=== PATIENT | female | born 1955 | race Caucasian/White ===

== ENCOUNTER → 2017-08-14 | Outpatient (CLI) | payer BC ==
[~2017-08-14] MED LIST: ACET-1966 PO; ASPI81TA94 PO; CHOL10005 PO; HYDR-2966 PO; LEVO112T9; LISI20TA29 PO; PRAV20TA65 PO; UBID50TA3 PO
== END ==
LOC: AUD 13:00
PROVIDERS: ATTEND Otolaryngology
DX: H93.19 Tinnitus, unspecified ear (principal)
CPT/HCPCS: 92557; 92570

== ENCOUNTER → 2017-08-23 | Outpatient (CLI) | payer BC | LOC: LAB 11:02 | PROVIDERS: ATTEND Otolaryngology | DX: J30.9 Allergic rhinitis, unspecified (principal) | CPT/HCPCS: 36415; 86003 ==

== ENCOUNTER → 2018-01-21 | Outpatient (CLI) | payer BC ==
--- NOTE | 2018-01-21 15:43 | RADIOLOGY IMAGING REPORT ---
[place] [facility] [place] NAME: Cari Mccabe : 1955 MR: [id number] V: [id number] EXAM DATE: ORDERING PHYSICIAN: BETTY OSCAR TECHNOLOGIST: Location: [facility] [place] Patient: Cari Mccabe : 1955 Visit/Account:[id number] Date of Sevice: 01/21/2018 KIDNEYS EXAMINATION: Renal ultrasound. History: Abnormal labs, history of bladder infections COMPARISON STUDIES: FINDINGS: Kidneys: Right kidney- 8.9 x 4.3 x 4.1 cm Left kidney- 9.9 x 4.7 x 6.9 cm Uniform and symmetric blood flow in each kidney by Doppler ultrasound. Hydronephrosis: none There is a slightly lobular contour to both kidneys There are two cysts in the medial aspect of the left kidney one measuring 1.9 cm in diameter one nichol uring 2.8 cm in diameter Bladder: Bladder prevoid volume 96 mL. The post void bladder residual is 1.9 mL. Bilateral ureteral jets are present. Incidentally noted are numerous gallstones Abdominal aorta and IVC: Aorta and IVC are patent by Doppler ultrasound. IMPRESSION: There are two left renal cysts one measuring 1.9 cm in diameter and one measuring 2.8 cm in diameter This a slightly lobular contour to both kidneys Post void bladder residual 1.9 mL Incidental note of numerous gallstones Report Dictated By: Karina You MD at 01/21/2018 3:23 PM Report E-Signed By: Karina You MD at 01/21/2018 3:40 PM WSN:[id number]
== END ==
LOC: US 01:55
PROVIDERS: ATTEND Family Medicine
DX: N28.1 Cyst of kidney, acquired (principal); K80.20 Calculus of gallbladder without cholecystitis without obstruction
CPT/HCPCS: 76705

== ENCOUNTER → 2018-07-07 | Outpatient (CLI) | payer BC ==
--- NOTE | 2018-07-08 14:10 | RADIOLOGY IMAGING REPORT ---
FACILITY: [facility] - [place] PATIENT NAME: RADHA CORNEJO : [id number] MR: [id number] V: [id number] EXAM DATE: ORDERING PHYSICIAN: BETTY OSCAR TECHNOLOGIST: Elva Sneed PROCEDURE:BILATERAL DIGITAL SCREENING MAMMOGRAM WITH CAD ASSISTED INTERPRETATION & 3D TOMOSYNTHESIS COMPARISON:Prior mammograms dated 06/20/17, 06/14/16, 05/25/15, 04/27/14, 04/21/14 INDICATIONS:screening FINDINGS: Scattered fibroglandular densities are seen throughout the breasts. Most of the parenchymal pattern has remained stable allowing for difference in mammographic technique & patient positioning. There is a small collection of loosely grouped round calcifications in the upper outer quadrant of the Left breast that have increased in number since the prior study. Spot magnification view of these calcifications in addition to a mediolateral view of the Left breast is recommended. DIAGNOSTIC CATEGORY 0--INCOMPLETE: NEED ADDITIONAL IMAGING EVALUATION. RECOMMENDATIONS: ADDITIONAL MAMMOGRAPHIC VIEWS REQUIRED: LEFT BREAST. IMPRESSION: BIRADS 0: Incomplete, need additional imaging evaluation. Additional views Left breast recommended as described. Dictated by: Karina You M.D. on 07/07/2018 at 17:12 Transcribed by: TONO on 07/08/2018 at 12:44 Approved by: Karina You M.D. on 07/08/2018 at 14:09 [facility]
== END ==
LOC: MAMO 03:24
PROVIDERS: ATTEND Family Medicine
DX: Z12.31 Encounter for screening mammogram for malignant neoplasm of breast (principal); R92.8 Other abnormal and inconclusive findings on diagnostic imaging of breast
CPT/HCPCS: 77063; 77067

== ENCOUNTER → 2018-07-24 | Outpatient (CLI) | payer BC ==
--- NOTE | 2018-07-25 08:48 | RADIOLOGY IMAGING REPORT ---
FACILITY: [facility] PATIENT NAME: RADHA CORNEJO : [id number] MR: [id number] V: [id number] EXAM DATE: [id number] ORDERING PHYSICIAN: BETTY OSCAR TECHNOLOGIST: Maggi Burris PROCEDURE:LEFT DIGITAL DIAGNOSTIC MAMMOGRAM WITH CAD ASSISTED INTERPRETATION COMPARISON:Prior mammograms 07/07/18, 06/20/17, 06/14/16, 05/25/15, 04/21/14, 03/27/13, 02/13/12. INDICATIONS:further evaluation FINDINGS: The patient returns for mediolateral view of the Left breast and Spot magnification views in the Left CC & MLO projections. The small grouping of round calcifications in the upper outer quadrant of the Left breast in the middle 1/3 are re-demonstrated. There is branching or pleomorphism however given the interval increase in number Stereotactic biopsy recommended for further evaluation. DIAGNOSTIC CATEGORY 4--SUSPICIOUS FOR MALIGNANCY. RECOMMENDATIONS: STEREOTACTIC BREAST BIOPSY: LEFT BREAST. IMPRESSION: BIRADS 4: Suspicious for malignancy. Stereotactic biopsy of the increasing round grouping of calcifications in the upper outer quadrant of the Left breast middle 1/3 recommended for further evaluation. Dictated by: Karina You M.D. on 07/24/2018 at 16:31 Transcribed by: JESUS on 07/25/2018 at 8:18 Approved by: Karina You M.D. on 07/25/2018 at 8:47 [facility]
== END ==
LOC: US 00:43
PROVIDERS: ATTEND Family Medicine
DX: R92.1 Mammographic calcification found on diagnostic imaging of breast (principal)
CPT/HCPCS: 77061; 77065

== ENCOUNTER 2018-07-25 16:04 | Outpatient (RCR) | payer BC ==
[2018-07-25 16:33] LABS: INR 0.95
--- NOTE | 2018-07-29 14:44 | RADIOLOGY IMAGING REPORT ---
FACILITY: [facility] [place] PATIENT NAME: RADHA CORNEJO : [id number] MR: [id number] V: [id number] EXAM DATE: [id number] ORDERING PHYSICIAN: BETTY OSCAR TECHNOLOGIST: Maggi Burris PROCEDURE: STEREOTACTIC LEFT BREAST BIOPSY COMPARISON: None. INDICATIONS: ABNORMAL MAMMO/INCREASING CALCIFICATIONS UPPER OUTER QUADRANT OF THE LEFT BREAST. FINDINGS: Informed consent was obtained. The patient was placed prone in the stereotactic biopsy table. The increasing calcifications in the upper outer quadrant of the Left breast were localized with digital stereo pair images. Local anesthesia was accomplished with 1% Lidocaine. Deep anesthesia accomplished with 1% Lidocaine with Epinephrine. Twelve 9 Gauge vacuum assisted core biopsies were obtained through the indeterminate calcifications in the upper outer quadrant of the Left breast. The specimen radiograph of the core samples demonstrated numerous calcifications within numerous core samples. A biopsy clip was placed in the biopsy site. The procedure was accomplished without apparent complication. CONCLUSION: Successful stereotactic biopsy of the indeterminate calcifications upper outer quadrant of the Left breast. Dictated by: Karina You M.D. on 07/28/2018 at 16:40 Transcribed by: TONO on 07/29/2018 at 9:59 Approved by: Karina You M.D. on 07/29/2018 at 14:43 [facility]
--- NOTE | 2018-07-29 14:44 | RADIOLOGY IMAGING REPORT ---
[place] [facility] [place]IENT NAME: RADHA CORNEJO : [id number] MR: [id number] V: [id number] EXAM DATE: ORDERING PHYSICIAN: BETTY OSCAR TECHNOLOGIST: Maggi Burris PROCEDURE:LEFT DIGITAL DIAGNOSTIC MAMMOGRAM COMPARISON:None. INDICATIONS:ABNORMAL MAMMO/POST STEREOTACTIC BIOPSY FOR CLIP PLACEMENT FINDINGS: Stereotactic biopsy clip is located in the upper outer quadrant of the Left breast in the middle third in the location of the previously noted increasing calcifications. Some of the calcifications have been removed. Pathology results are pending. IMPRESSION: Stereotactic biopsy clip is located in the upper outer quadrant of the Left breast in the middle third in the location of the previously noted increasing calcifications. Dictated by: Karina You M.D. on 07/28/2018 at 16:39 Transcribed by: TONO on 07/29/2018 at 9:52 Approved by: Karina You M.D. on 07/29/2018 at 14:43 [facility]
--- NOTE | 2018-07-29 14:44 | RADIOLOGY IMAGING REPORT ---
FACILITY: [facility] - [place] PATIENT NAME: RADHA CORNEJO : [id number] MR: [id number] V: [id number] EXAM DATE: [id number] ORDERING PHYSICIAN: BETTY OSCAR TECHNOLOGIST: Maggi Burris PROCEDURE: BREAST SPECIMEN COMPARISON: None. INDICATIONS: ABNORMAL MAMMO/POST STEREOTACTIC BREAST BIOPSY FINDINGS: Numerous calcifications are identified in numerous core samples from today's Left breast stereotactic biopsy. CONCLUSION: As above. Dictated by: Karina You M.D. on 07/28/2018 at 16:41 Transcribed by: TONO on 07/29/2018 at 10:01 Approved by: Karina You M.D. on 07/29/2018 at 14:43 [facility]
== END 2018-07-28 19:00 | disposition home or self-care (01) ==
LOC: MAMO 16:04 → EDSTATUS 07-28 16:04 → MAMO 07-28 19:00
PROVIDERS: ATTEND Family Medicine
DX: R92.1 Mammographic calcification found on diagnostic imaging of breast (principal)
CPT/HCPCS: 19081; 36415; 77061; 77065; 85610; 85730; 88305; 88344

== ENCOUNTER 2018-09-12 00:48 | Day surgery (SDC) | payer BC ==
[2018-09-10 12:30] LABS: PLATELET COUNT, AUTOMATED 216 K/uL (150-450)
--- NOTE | 2018-09-10 12:34 | EKG ---
FACILITY: [facility] - [place] PATIENT NAME: RADHA CORNEJO : [id number] MR: [id number] V: [id number] EXAM DATE: ORDERING PHYSICIAN: CAS BARDALES TECHNOLOGIST: JASVIR Olivares Reason : PREOP-LET BREAST Blood Pressure : / mmHG Vent. Rate : 057 BPM Atrial Rate : 057 BPM P-R Int : 158 ms QRS Dur : 088 ms QT Int : 416 ms P-R-T Axes : 061 069 062 degrees QTc Int : 404 ms Sinus bradycardia Otherwise normal ECG No previous ECGs available Confirmed by BARBARA FARIAS ([id number]) on 09/10/2018 1:43:08 PM Referred By: PEYTON Confirmed By:BARBARA FARIAS
[~2018-09-12] VITALS: Ht 163.8 cm; Wt 130.6 kg
[2018-09-12] VITALS (9 sets, daily range): BP systolic 101–117; BP diastolic 51–89
[~2018-09-12 00:48] MED LIST changes: +ACET500T68 PO
[2018-09-12] MEDS ORDERED: LIDOCAINE/PRILOCAINE 5 GM TUBE TP ONE (07:55)
[2018-09-12] MEDS ORDERED: MIDAZOLAM 2 MG/2 ML VIAL IVP PRN (10:30)
[2018-09-12] MEDS ORDERED: ceFAZolin(*) 1 GM VIAL 3 GM in NS(*) 0.9% 100 ML BAG 100 ML IVPB ONE (10:30)
[2018-09-12] MEDS ORDERED: FAMOTIDINE 20 MG TAB PO ONE (10:30)
[2018-09-12] MEDS ORDERED: NORMOSOL R SOLN(*) 1000 ML BAG 1,000 ML IV PRN (10:30)
[2018-09-12] MEDS ORDERED: LIDOCAINE/SOD BICARB 8.4% SYR ID ONE (10:30)
[2018-09-12] MEDS ORDERED: ISOSULFAN BLUE 1% SLN 50MG/5ML ONE (10:55)
[2018-09-12] MEDS ORDERED: ROPIVACAINE 0.5% 20 ML VIAL ONE (10:56)
[2018-09-12] MEDS ORDERED: DEXAMETHASONE SOD PHOS 10MG/ML ONE (11:08)
[2018-09-12] MEDS ORDERED: KETAMINE HCL-NS 50 MG/5 ML SYR ONE (11:08)
[2018-09-12] MEDS ORDERED: PROPOFOL EMUL(*) 10MG/ML 20 ML 20 ML ONE (11:08)
[2018-09-12] MEDS ORDERED: ONDANSETRON 4 MG/2 ML VIAL ONE (11:08)
[2018-09-12] MEDS ORDERED: LIDOCAINE 2% IV 100 MG/5ML SYR ONE (11:08)
[2018-09-12] MEDS ORDERED: LIDOCAINE MPF 1% 5 ML VIAL ONE (11:08)
[2018-09-12] MEDS ORDERED: fentaNYL CITR 100 MCG/2 ML AMP ONE ×2 (11:08→14:48)
[2018-09-12] MEDS ORDERED: GLYCOPYRROLATE 0.2MG/ML 1 ML INJ ONE (12:30)
[2018-09-12] MEDS ORDERED: KETOROLAC 30 MG/ML VIAL ONE (14:03)
[2018-09-12] MEDS ORDERED: ACETAMINOPHEN(*)1000 MG/100 ML 100 ML IVPB ONE (14:04)
[2018-09-12] MEDS ORDERED: OXYC-854 PO (14:22)
[2018-09-12] MEDS ORDERED: DOCU-416 PO (14:22)
--- NOTE | 2018-09-12 14:25 | Short(Outpt) Discharge Summary ---
Discharge Summary Reason for Hosp/Final Diag: (1) Ductal carcinoma in situ (DCIS) of left breast with comedonecrosis Status: Chronic Hospital Course & Plan: Left breast cancer wire-guided excision with left axillary SLN bx completed without problems. Departure Discharge to: Home, Self Care Discharge Instructions Home Meds Active Scripts Docusate Sodium (COLACE) 100 Mg Capsule, 1 CAP PO BID, #30 CAP 0 Refills TAKE WITH A FULL GLASS OF WATER Prov:BARBARA TDOD MD 09/12/18 Oxycodone Hcl/Acet 5/325 Mg (ENDOCET 5-325 TABLET) 1 Each Tablet, 1 TAB PO Q4H PRN for PAIN, #20 TAB 0 Refills Prov:BARBARA TODD MD 09/12/18 Reported Medications Acetaminophen (TYLENOL EXTRA STRENGTH) 500 Mg Tablet, 500 MG PO QID, TAB 09/08/18 Ubidecarenone (COQ10) Unknown Strength Tab.chew, PO, TAB.CHEW 07/18/17 Aspirin (ASPIRIN) 81 Mg Tab.chew, 81 MG PO QDAY, TAB.CHEW 07/18/17 Cholecalciferol (Vitamin D3) (VITAMIN D3) Unknown Strength Tablet, PO, TAB 07/18/17 Levothyroxine Sodium (Levo-T) 112 Mcg Tablet 07/18/17 Hydrochlorothiazide (HYDROCHLOROTHIAZIDE) 25 Mg Tablet, 1 TAB PO QDAY, TAB 07/18/17 Lisinopril (LISINOPRIL) 20 Mg Tablet, 20 MG PO QDAY, TAB 07/18/17 Pravastatin Sodium (PRAVACHOL) 20 Mg Tablet, 40 MG PO QDAY, TAB 07/18/17 Discontinued Reported Medications Acetaminophen (TYLENOL) Unknown Strength Tablet, PO, TAB 07/18/17 Follow up Referrals: General Surgery - 09/26/18 @ Surgery, General with BARBARA TODD MD You have a follow up appointment scheduled with Dr. Todd on 09/26/18, at 9:00am. Diet: Regular Activity: As Tolerated Special Instructions: You may remove the white surgical dressings on 09/14/18, then you can shower. After showering, leave the incisions open to air but leave the steristrips in place until they fall off on their own. Do not immerse the incisions for 2 weeks. BARBARA TODD MD Sep 12, 2018 14:25
--- NOTE | 2018-09-12 14:32 | Post Operative Progress Note ---
Post Operative Progress Note Date: Sep 12, 2018 Time: 14:25 Surgeon: Jaclyn Dictation number: [id number] Anesthesia: LMA by Dr. Paul Pre-Op Diagnosis: Left breast DCIS with comedo necrosis Post-Op Diagnosis: SHALONDA Findings: Calcifications and biopsy clip all included in the specimen based on mammogram of the specimen Procedure(s): Left breast wire guided excision of cancer Left axillary SLN excision Specimen Removed:(May be N/A): 1) Left axillary SLN #1 2) Left breast cancer Complications: None Fluids: See anesthesia record Estimated Blood Loss: Minimal Date OP Note Dictated: Sep 12, 2018 Time OP Note Dictated: 14:27 BARBARA TODD MD Sep 12, 2018 14:32
--- NOTE | 2018-09-12 15:10 | OPERATIVE REPORT 1 ---
EVENT DATE: September 12, 2018 SURGEON: Ramón Anaya MD ANESTHESIOLOGIST: Brock Paul MD ANESTHESIA: LMA. PREOPERATIVE DIAGNOSIS Left breast ductal carcinoma in situ with comedonecrosis. POSTOPERATIVE DIAGNOSIS Left breast ductal carcinoma in situ with comedonecrosis. PROCEDURES PERFORMED 1. Left breast wire-guided excision of breast cancer. 2. Left axillary sentinel lymph node excision. COMPLICATIONS None. CONDITION Stable. BLOOD LOSS Minimal. FINDINGS The patient's mammogram of her specimen revealed that all her calcifications and biopsy clip were included in the specimen. It looked like a good resection. SPECIMENS 1. Left axillary sentinel lymph node. 2. Left breast cancer. INDICATIONS A 62-year-old female who presented to my office with a new area of suspicious microcalcifications in her left breast, and biopsy revealed this to be DCIS with comedonecrosis. After discussing her surgical options, she elected to proceed with breast conservation therapy, and due to the comedonecrosis, the sentinel lymph node excision. DESCRIPTION OF PROCEDURE The patient was brought to the operating room and placed supine on the operating table. She had previously had nuclear medicine sentinel lymph node identification as well as wire placement under mammogram guidance in her left breast calcifications. LMA anesthesia was administered, and her left breast, arm, and axilla were all prepped and draped in a sterile fashion. Timeout was completed. I then started with the axilla and used a gamma probe and identified the area of maximal gamma output and marked the skin in this area. I then injected the skin with 0.05% ropivacaine plain and then made an incision in the axilla and dissected through the dermis and subcutaneous fat until I entered the axillary contents. I used the gamma probe intermittently to direct me towards the sentinel node. I then removed the sentinel node, which was either one large node or two nodes stuck together, and these were sent to Pathology fresh for frozen section analysis. I then packed the axilla with a moist Ray-Luis Fernando and then turned my attention to the breast. I had previously reviewed the mammogram images of the wire placement with the radiologist to direct my incision and dissection. I made an incision in the upper-outer quadrant of the patient's left breast after anesthetizing the skin and dissected through the dermis and subcutaneous fat. I then tracked the dissection laterally towards the entrance of the wire. I identified the wire and pulled it up into the wound. I then dissected along the wire all the way down past the tip of the wire and then removed a nice golf ball size piece of tissue. I then packed this wound with moist Ray-Luis Fernando, and then I walked the specimen on a grid over to Radiology. We took a two-view picture of the sample on the grid using the mammogram. I reviewed this with the radiologist, and it looked like all of the calcifications and the biopsy clip were well within the middle of the specimen, and so then it was placed in formalin and sent over to Pathology. I went back to the operating room and irrigated both wounds and made sure they were dry and hemostatic. I then closed the subcutaneous pockets with interrupted 3-0 Vicryl sutures and then closed the skin with 3-0 Vicryl interrupted deep dermal sutures and 4-0 Monocryl running subcuticular sutures. Skin was cleaned and dried, and Steri- Strips were applied, followed by sterile surgical dressings. The patient was then awakened, extubated in the operating room, and transported to the recovery room in stable condition having tolerated the procedure without any apparent problems. WIL
--- NOTE | 2018-09-16 12:51 | RADIOLOGY IMAGING REPORT ---
FACILITY: [facility] PATIENT NAME: RADHA CORNEJO : [id number] MR: [id number] V: [id number] EXAM DATE: ORDERING PHYSICIAN: BARBARA TODD TECHNOLOGIST: Elaine Cunningham RDMS PROCEDURE: ULTRASOUND GUIDED LEFT BREAST LOCALIZATION COMPARISON: None. INDICATIONS: see dx FINDINGS: SEE REPORT FOR LEFT BREAST SENTINAL NODE SAME DAY RECOMMENDATIONS: CONCLUSION: Dictated by: Jones Dominique M.D. on 09/12/2018 at 16:19 Transcribed by: TONO on 09/15/2018 at 10:24 Approved by: Kendrick Bullard M.D. on 09/16/2018 at 12:50 [facility]
--- NOTE | 2018-09-16 12:51 | RADIOLOGY IMAGING REPORT ---
FACILITY: [facility] PATIENT NAME: RADHA CORNEJO : [id number] MR: [id number] V: [id number] EXAM DATE: ORDERING PHYSICIAN: BARBARA TODD TECHNOLOGIST: Ebonie Kang PROCEDURE: NUCLEAR MEDICINE SENTINAL NODE STUDY LEFT BREAST ULTRASOUND GUIDED LEFT BREAST NEEDLE LOCALIZATION POST LOCALIZATION LEFT DIAGNOSTIC MAMMOGRAM LEFT BREAST SPECIMEN RADIOGRAPH LEFT BREAST SCINTIGRAPHIC IMAGING COMPARISON: None. INDICATIONS: Left breast ca/lesion FINDINGS: The procedure & risks including bleeding, infection & inadequate localization were explained to the patient who agreed to proceed. The Left breast was sterilely prepped & draped. A total of 500uCi Lymphoseek was then injected intradermaly into 4 spots along the edge of the Left areola. Scintigraphic imaging of the Left chest demonstrates focal activity in the Left breast deep to the injection sites. A faint area of increased activity is present in the Left axilla. The Left breast was reprepped & redraped. Ultrasound was used to locate an echogenic focus in the upper outer quadrant of the Left breast consistent with a biopsy marking clip. The skin was anesthetized with 2mm 1% Lidocaine without epinephrine. Under direct Ultrasound guidance a Guide needle was advanced to the marking clip & then just beyond the marking clip. A hookwire was deployed. A Left diagnostic mammogram was obtained demonstrating the marking clip & calcifications immediately adjacent to the shaft of the hookwire. A sterile dressing was applied. The patient tolerated the procedure well without complications. Two Left breast specimen radiographs demonstrate the clip, hookwire & calcifications within the specimen. The findings were discussed with Dr Barbara Todd. CONCLUSION: Results pending - Ultrasound guided needle localization of Left breast lesion. Left breast radionuclide injection for Sentinal Node localization. Dictated by: Jones Dominique M.D. on 09/12/2018 at 16:18 Transcribed by: TONO on 09/15/2018 at 10:35 Approved by: Kendrick Bullard M.D. on 09/16/2018 at 12:50 [facility]
== END 2018-09-12 15:00 | disposition home or self-care (01) ==
LOC: OR 00:48
PROVIDERS: ATTEND Surgery
DX: D05.82 Other specified type of carcinoma in situ of left breast (principal); I10 Essential (primary) hypertension
CPT/HCPCS: 19125; 19285; 36415; 38500; 78195; 85025; 88305; 88331; 88344; 93005; A9520; J0131; J0690; J1100; J1885; J2001; J2405; J2704; J2795; J3010; J3490; J7050; Q9968; 77061; 77065; 82310; 82374; 82435; 82565; 82947; 84132; 84295; 84520

== ENCOUNTER 2018-09-26 12:15 | Outpatient (RCR) | payer BC ==
[2018-08-28 12:57] VITALS: BP 122/81
--- NOTE | 2018-08-28 21:21 | [facility] ONCOLOGY NOTE ---
EVENT DATE: August 28, [address] Zamora REASON FOR CONSULTATION Evaluation and management of DCIS of the left breast. ONCOLOGY HISTORY Patient is a 62-year-old female who had an abnormal screening mammogram on the June, which showed scattered fibroglandular densities in both breasts with calcification in the upper-outer quadrant of the left breast, which increased in number compared to previous mammograms. This was followed by diagnostic mammogram, which confirmed the upper-outer quadrant calcification in the left breast. Patient ended by having stereotactic biopsy on the July, and the pathology came back positive for high-grade DCIS with comedonecrosis, ER 92.5% positive, OR 26.2% positive, HER2/claribel 2+. Ki-67 was 16.7% positive. p53 was 0.2% positive. PAST MEDICAL HISTORY 1. Hypertension. 2. Hyperlipidemia. 3. Hypothyroidism. PAST SURGICAL HISTORY 1. Tubal ligation. 2. Repair of left arm fracture. 3. Carpal tunnel release surgery. 4. Ganglion cyst removal. 5. Tonsillectomy as a child. FAMILY HISTORY Sister had breast cancer in the 30s or early 40s, but no other family members with breast or ovarian cancer. SOCIAL HISTORY Patient is single with three children. She works in secretarial work. She denies any abuse of tobacco, alcohol, or illicit drugs. CURRENT MEDICATIONS 1. CoQ10 chewable tablet daily. 2. Aspirin 81 mg daily. 3. Vitamin D3 daily. 4. Levothyroxine 112 mcg daily. 5. Hydrochlorothiazide 25 mg daily. 6. Lisinopril 20 mg daily. 7. Pravastatin 40 mg daily. ALLERGIES INTRAVENOUS IODINE which caused hives. SULFA and CODEINE which make her shaky. REVIEW OF SYSTEMS CONSTITUTIONAL: No appetite or weight change. No fever, chills, or sweating. No recent infection. HEENT: Ears: No tinnitus or hearing problem. Nose: No nasal discharge or epistaxis. Throat: No sore throat or mouth ulcers. Eyes: No diplopia or visual changes. RESPIRATORY: No shortness of breath. No cough, expectoration, or hemoptysis. CARDIOVASCULAR: No chest pain, orthopnea, or paroxysmal nocturnal dyspnea (PND). No edema. No palpitations. GASTROINTESTINAL: No nausea or vomiting. No diarrhea or constipation. No change in bowel movements. No heartburn or swallowing difficulties. No abdominal pain. No jaundice. No hematemesis, melena, or rectal bleeding. GENITOURINARY: No hematuria or dysuria. MUSCULOSKELETAL: She has back pain. NEUROLOGICAL: No tingling or numbness in the hands or feet. She has occasional headaches. No convulsions. HEMATOLOGIC/LYMPHATIC: No bleeding or easy bruising. No weakness or fatigue. No enlarged lymph nodes. SKIN: No skin rash or lumps. PSYCHIATRIC: No anxiety or depression. PHYSICAL EXAMINATION GENERAL: Looks stable. Well developed, well nourished, and in no acute distress. VITAL SIGNS: Blood pressure 122/81, pulse 86 per minute, respirations 18 per minute, temperature 97.8, pulse ox 92% on room air. HEENT: Head: Atraumatic. No sinus tenderness to palpation. Eyes: No icterus or conjunctivitis. Mouth and throat: No oral thrush or mucositis. NECK: Supple. No cervical or supraclavicular lymphadenopathy. LUNGS: Clear to auscultation and percussion bilaterally. HEART: Regular rate and rhythm. No gallops, murmurs, clicks, or rubs. ABDOMEN: Soft and lax. No tenderness. No hepatosplenomegaly. No masses. EXTREMITIES: No cyanosis, clubbing, or edema. LYMPHATICS: No peripheral lymphadenopathy. NEUROLOGICAL: Conscious, alert, and oriented times three. No focal motor or sensory deficits. PSYCHIATRIC: Mood and affect appear normal. SKIN: No skin rash, bruise, or purpuric eruption. 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 There was not any evidence of invasive cancer. ER 92.5% positive, OR 26.2% positive, HER2/claribel 2+. Ki-67 was 16.7% positive. p53 was 0.2% positive. I had a long discussion with the patient regarding further management. Patient has an appointment with Dr. Anaya for evaluation and management of her treatment. I am planning to see the patient two weeks after her surgery to decide about further management after knowing the status of the sentinel lymph nodes and also if there will be an invasive component or not in her final surgery. If the patient will remain having ductal carcinoma in situ after her surgery, then she will need after that adjuvant radiation therapy if she is going for lumpectomy and then adjuvant hormonal therapy with five years of tamoxifen. PLAN 1. Continue followup. 2. Patient to return in two weeks after her breast surgery. 3. Patient to contact us for any new concerns or complaints. WIL
[~2018-09-26] VITALS: Ht 163 cm; Wt 123.5 kg
[~2018-09-26 12:15] MED LIST changes: +DOCU-416 PO; +OXYC-854 PO
[2018-09-26 12:24] VITALS: BP 110/73
--- NOTE | 2018-09-26 17:12 | [facility] ONCOLOGY NOTE ---
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 CHIEF COMPLAINT Patient is here today for followup of her left breast DCIS after lumpectomy. ONCOLOGY HISTORY Patient is a 62-year-old female who had an abnormal screening mammogram on the June, which showed scattered fibroglandular densities in both breasts with calcification in the upper-outer quadrant of the left breast, which increased in number compared to previous mammograms. This was followed by diagnostic mammogram, which confirmed the upper-outer quadrant calcification in the left breast. Patient ended by having stereotactic biopsy on the July, and the pathology came back positive for high-grade DCIS with comedonecrosis, ER 92.5% positive, NE 26.2% positive, HER2/claribel 2+. Ki-67 was 16.7% positive. p53 was 0.2% positive. Patient had lumpectomy and sentinel lymph node biopsy done on the August, and pathology came back positive for 0.9 cm DCIS, high grade, with comedonecrosis and microcalcification. [place] lymph node was negative for malignancy. HISTORY OF PRESENT ILLNESS Patient is here today for followup of her DCIS of the left breast after lumpectomy. She is doing fine currently. Her surgery is healing very well. She is complaining of some lower back pain and occasional headache, but other than that, she is doing really very well. PAST MEDICAL HISTORY 1. Hypertension. 2. Hyperlipidemia. 3. Hypothyroidism. PAST SURGICAL HISTORY 1. Tubal ligation. 2. Repair of left arm fracture. 3. Carpal tunnel release surgery. 4. Ganglion cyst removal. 5. Tonsillectomy as a child. FAMILY HISTORY Sister had breast cancer in the 30s or early 40s, but no other family members with breast or ovarian cancer. SOCIAL HISTORY Patient is single with three children. She works in secretarial work. She denies any abuse of tobacco, alcohol, or illicit drugs. CURRENT MEDICATIONS 1. CoQ10 chewable tablet daily. 2. Aspirin 81 mg daily. 3. Vitamin D3 daily. 4. Levothyroxine 112 mcg daily. 5. Hydrochlorothiazide 25 mg daily. 6. Lisinopril 20 mg daily. 7. Pravastatin 40 mg daily. ALLERGIES INTRAVENOUS IODINE which caused hives. SULFA and CODEINE which make her shaky. REVIEW OF SYSTEMS CONSTITUTIONAL: No appetite or weight change. No fever, chills, or sweating. No recent infection. HEENT: Ears: No tinnitus or hearing problem. Nose: No nasal discharge or epistaxis. Throat: No sore throat or mouth ulcers. Eyes: No diplopia or visual changes. RESPIRATORY: No shortness of breath. No cough, expectoration, or hemoptysis. CARDIOVASCULAR: No chest pain, orthopnea, or paroxysmal nocturnal dyspnea (PND). No edema. No palpitations. GASTROINTESTINAL: No nausea or vomiting. No diarrhea or constipation. No change in bowel movements. No heartburn or swallowing difficulties. No abdominal pain. No jaundice. No hematemesis, melena, or rectal bleeding. GENITOURINARY: No hematuria or dysuria. MUSCULOSKELETAL: She has lower back pain. NEUROLOGIC: No tingling or numbness in the hands or feet. She has occasional headaches. No convulsions. HEMATOLOGIC/LYMPHATIC: No bleeding or easy bruising. No weakness or fatigue. No enlarged lymph nodes. SKIN: No skin rash or lumps. PSYCHIATRIC: No anxiety or depression. PHYSICAL EXAMINATION GENERAL: Looks stable. Well developed, well nourished, and in no acute distress. VITAL SIGNS: Blood pressure 110/73, pulse 84 per minute, respirations 18 per minute, temperature 97.8, pulse ox 94% on room air. HEENT: Head: Atraumatic. No sinus tenderness to palpation. Eyes: No icterus or conjunctivitis. Mouth and Throat: No oral thrush or mucositis. NECK: Supple. No cervical or supraclavicular lymphadenopathy. LUNGS: Clear to auscultation and percussion bilaterally. HEART: Regular rate and rhythm. No gallops, murmurs, clicks, or rubs. ABDOMEN: Soft and lax. No tenderness. No hepatosplenomegaly. No masses. EXTREMITIES: No cyanosis, clubbing, or edema. LYMPHATICS: No peripheral lymphadenopathy. NEUROLOGIC: Conscious, alert, and oriented times three. No focal motor or sensory deficits. PSYCHIATRIC: Mood and affect appear normal. SKIN: No skin rash, bruise, or purpuric eruption. DIAGNOSTIC DATA Pathology from her lumpectomy and sentinel lymph node biopsy done on the August showed 0.9 cm DCIS, high grade, with comedonecrosis and microcalcification. [place] lymph node was negative for malignancy. 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 No microinvasion. ER was 92.5% positive, NE 26.2% positive, HER2/claribel 2+. Ki-67 was 16.7% positive. p53 was 0.2% positive. Patient had lumpectomy and sentinel lymph node biopsy done on the August, and the pathology came back positive for 0.9 cm ductal carcinoma in situ, high grade, with comedonecrosis and microcalcification. [place] lymph node was negative for malignancy. As there is not any microinvasion, I am planning to refer the patient for adjuvant radiation therapy. I will see her after she would finish her radiation therapy to start the adjuvant hormonal therapy with tamoxifen 20 mg daily for five years, which will act as a chemopreventive agent. I explained that to the patient. She is agreeable with the plan of management. PLAN 1. Radiation Therapy consult. 2. Patient to return after she finishes her radiation therapy with CBC, chem panel, and vitamin D level. 3. Patient to contact us for any new concerns or complaints. WIL
[2018-11-24] MEDS ORDERED: SILV20CR2 TP (13:30)
== END 2018-11-25 ==
LOC: ONC 12:15
PROVIDERS: ATTEND Internal Medicine Hematology
DX: D05.12 Intraductal carcinoma in situ of left breast (principal); Z17.0 Estrogen receptor positive status [ER+]; M54.5 Low back pain; R51 Headache; E03.9 Hypothyroidism, unspecified; E78.5 Hyperlipidemia, unspecified; Z79.899 Other long term (current) drug therapy
CPT/HCPCS: 99202; 99212

== ENCOUNTER 2018-12-19 09:41 | Outpatient (RCR) | payer BC ==
[2018-09-30 16:02] VITALS: BP 110/77
--- NOTE | 2018-10-01 02:25 | TOBIN CONSULT ---
EVENT DATE: September 30, 2018 CHIEF COMPLAINT/REASON FOR VISIT Patient is here for consultation relating to a recent diagnosis of high-grade ductal carcinoma in situ of the left breast. ONCOLOGY HISTORY This is a pleasant 62-year-old lady who is referred to me for discussion of treatment options as well as details relating to therapy for recently diagnosed left breast DCIS. The patient has reliably undergone mammograms since age 45. This past year, she had an abnormal mammogram in mid June, specifically on 07/07/18. That study was obtained from [facility] with radiographic finding of highly suspicious pleomorphic calcifications. The calcifications were in the upper outer quadrant of the left breast on the middle third location. They were listed as suspicious for malignancy, and biopsy recommended. The patient underwent stereotactic biopsy followed by local excision. The lumpectomy specimen was notable for high-grade DCIS with comedonecrosis. The area measured 0.9 x 0.8 x 0.7 cm. The DCIS approached within 2 mm of the superior surgical margin. No invasive carcinoma noted. A sentinel lymph node was removed on 09/12/18, which was negative. The patient's lumpectomy specimen measured 5 x 3.5 x 2.2 cm and contained a white fibrous area with dimensions listed above, consistent with high-grade DCIS. Tumor is strongly ER receptor positive at 92%,DC receptor positive at 26%, HER2 of 2+. Ki-67 was 16.7%. The patient does have a positive family history of a sister with breast carcinoma. Following appropriate surgery by Dr. Anaya, the patient has recovered nicely. She has seen Dr. Gutierrez in consultation on 09/26/18. She is interested in radiation therapy as an adjunct to surgery and will also take tamoxifen for at least five years as a chemopreventative agent, by his notes. Patient does have some longstanding lower back pain, which is relieved with chiropractic manipulation. PAST MEDICAL HISTORY 1. Hypertension. 2. Hyperlipidemia. 3. Hypothyroidism. PAST SURGICAL HISTORY 1. Lumpectomy and sentinel lymph node procedure. 2. Prior tubal ligation. 3. Previous carpal tunnel release. 4. Prior ganglion cyst removal. 5. Previous left arm fracture. 6. Remote tonsillectomy. FAMILY HISTORY Notable for a sister who had breast carcinoma in her late 30s/40s. SOCIAL HISTORY Patient is . Three children. Two sons live in [place]. One daughter lives in the [facility]. 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 She does not smoke. MEDICATIONS 1. Aspirin 81 mg a day. 2. Levothyroxine 112 mcg daily. 3. Hydrochlorothiazide 25 mg a day. 4. Lisinopril 20 mg a day. 5. Pravastatin 40 mg a day. ALLERGIES 1. INTRAVENOUS IODINE (hives). 2. Intolerance to SULFA and CODEINE, which cause tremors. REVIEW OF SYSTEMS Comprehensive review of systems notable for lower back muscular pain periodically. Review of systems otherwise negative. PHYSICAL EXAMINATION GENERAL: A pleasant 62-year-old female. VITALS: Blood pressure 110/77, pulse 77, respirations 18, weight 274, O2 saturation 93% on room air. LUNGS: Clear to auscultation bilaterally. HEART: Heart sounds regular. No audible murmur. LYMPHATIC: No peripheral lymphadenopathy is detected. BREASTS: Breast exam reveals large, pendulous breasts bilaterally. Right breast was entirely benign. Left breast exam reveals very minor induration at the left breast in the upper outer quadrant. Surgical incision is well approximated, measures 4 cm. Excellent cosmetic outcome at this stage. Left axillary incision is nicely healed. ABDOMEN: Soft. No gross organomegaly. EXTREMITIES: No edema or cyanosis. NEUROLOGIC: Intact. IMPRESSION This is pleasant 62-year-old lady who has a family history of breast carcinoma. She, unfortunately, was found to have a very early-stage left breast ductal carcinoma in situ on recent mammography. Tumor was associated with pleomorphic microcalcifications. The adverse features of the tumor include grade (comedo subtype). Tumor size is 0.9 x 0.8 x 0.7 mm. Margins appear to be sufficient per present NCCN guidelines. The tentative plan is to proceed with radiation therapy for breast conservation, to be followed by minimum of five years of tamoxifen as a chemopreventative agent, as listed in the consultation by Dr. Gutierrez. Initial guidelines and most recent publications are supportive of radiation therapy for these patients. There is a considerable risk reduction (over 50%) in the development of invasive malignancies on a sustained basis. There is a statistical improvement in long-term breast conservation for DCIS patients as well, cited by our colleagues in [place], 2018 July,. Treatment course typically involves radiotherapy for five to 5-1/2 weeks to the entire breast with field reduction boost to the quadrant of the tumor of excision to approximately 6000 cGy at standard fractionation. Details of treatment delivery were reviewed with the patient today. Discussed acute and late side effects. Discussed therapeutic alternatives. The patient and I went through her serial imaging as well as the pathology report. She is comfortable with her decision to proceed with the radiation therapy course at this juncture, and would like to get started within the next two weeks, which is reasonable. Signed consent has been obtained today for treatment during the 90-minute consultation. WIL
[2018-12-02 10:36] VITALS: BP 122/64
[2018-12-17 12:59] LABS: PLATELET COUNT, AUTOMATED 170 K/uL (150-450)
[2018-12-17 15:40] VITALS: BP 117/89
[2018-12-19 09:30] VITALS: BP 118/76
[~2018-12-19 09:41] MED LIST changes: +SILV20CR2 TP
[2018-12-19] MEDS ORDERED: TAMO20TA24 PO (11:53)
--- NOTE | 2018-12-19 17:00 | ONCOLOGY FOLLOW UP NOTE ---
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 CHIEF COMPLAINT Patient is here today for followup of her left breast DCIS after lumpectomy and radiation therapy. ONCOLOGY HISTORY Patient is a 63-year-old female who had an abnormal screening mammogram on the June, which showed scattered fibroglandular densities in both breasts with calcification in the upper-outer quadrant of the left breast, which increased in number compared to previous mammograms. This was followed by diagnostic mammogram, which confirmed the upper-outer quadrant calcification in the left breast. Patient ended by having stereotactic biopsy on the July, and the pathology came back positive for high-grade DCIS with comedonecrosis, ER 92.5% positive, IA 26.2% positive, HER2/claribel 2+. Ki-67 was 16.7% positive. p53 was 0.2% positive. Patient had lumpectomy and sentinel lymph node biopsy done on the August, and pathology came back positive for 0.9 cm DCIS, high grade, with comedonecrosis and microcalcification. [place] lymph node was negative for malignancy. 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 Patient started tamoxifen therapy 20 mg daily on the November. HISTORY OF PRESENT ILLNESS Patient is here today for followup of her DCIS of the left breast after lumpectomy and adjuvant radiation therapy. Apart from having radiation dermatitis after her radiation therapy, which is healing better now, patient does not have any other complaints today. PAST MEDICAL HISTORY 1. Hypertension. 2. Hyperlipidemia. 3. Hypothyroidism. PAST SURGICAL HISTORY 1. Tubal ligation. 2. Repair of left arm fracture. 3. Carpal tunnel release surgery. 4. Ganglion cyst removal. 5. Tonsillectomy as a child. FAMILY HISTORY Sister had breast cancer in the 30s or early 40s, but no other family members with breast or ovarian cancer. SOCIAL HISTORY Patient is single with three children. She works in secretarial work. She denies any abuse of tobacco, alcohol, or illicit drugs. CURRENT MEDICATIONS 1. Co-Q10 chewable tablet daily. 2. Aspirin 81 mg daily. 3. Vitamin D3 daily. 4. Levothyroxine 112 mcg daily. 5. Hydrochlorothiazide 25 mg daily. 6. Lisinopril 20 mg daily. 7. Pravastatin 40 mg daily. ALLERGIES INTRAVENOUS IODINE which caused hives. SULFA and CODEINE which make her shaky. REVIEW OF SYSTEMS CONSTITUTIONAL: No appetite or weight change. No fever, chills, or sweating. No recent infection. HEENT: Ears: No tinnitus or hearing problem. Nose: No nasal discharge or epistaxis. Throat: No sore throat or mouth ulcers. Eyes: No diplopia or visual changes. RESPIRATORY: No shortness of breath. No cough, expectoration, or hemoptysis. CARDIOVASCULAR: No chest pain, orthopnea, or paroxysmal nocturnal dyspnea (PND). No edema. No palpitations. GASTROINTESTINAL: No nausea or vomiting. No diarrhea or constipation. No change in bowel movements. No heartburn or swallowing difficulties. No abdominal pain. No jaundice. No hematemesis, melena, or rectal bleeding. GENITOURINARY: No hematuria or dysuria. MUSCULOSKELETAL: No pain in the muscles, joints, or bones. NEUROLOGIC: No tingling or numbness in the hands or feet. No headaches or convulsions. HEMATOLOGIC/LYMPHATIC: No bleeding or easy bruising. No weakness or fatigue. No enlarged lymph nodes. SKIN: Patient has some radiation dermatitis after her radiation therapy, which is healing better currently. PSYCHIATRIC: No anxiety or depression. PHYSICAL EXAMINATION GENERAL: Looks stable. Well developed, well nourished, and in no acute distress. VITAL SIGNS: Blood pressure 118/76, pulse 60 per minute, respirations 16 per minute, temperature 97, pulse ox 93% on room air. HEENT: Head: Atraumatic. No sinus tenderness to palpation. Eyes: No icterus or conjunctivitis. Mouth and Throat: No oral thrush or mucositis. NECK: Supple. No cervical or supraclavicular lymphadenopathy. LUNGS: Clear to auscultation and percussion bilaterally. HEART: Regular rate and rhythm. No gallops, murmurs, clicks, or rubs. ABDOMEN: Soft and lax. No tenderness. No hepatosplenomegaly. No masses. EXTREMITIES: No cyanosis, clubbing, or edema. LYMPHATICS: No peripheral lymphadenopathy. NEUROLOGIC: Conscious, alert, and oriented times three. No focal motor or sensory deficits. PSYCHIATRIC: Mood and affect appear normal. SKIN: No skin rash, bruise, or purpuric eruption. DIAGNOSTIC DATA CBC showed white count 3.2, hemoglobin 12.6, hematocrit 36.8, platelets 170,000. Chem panel totally normal except BUN 29, creatinine 1.6, calcium 10.3. Vitamin D level is normal at 89. 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 No microinvasion. ER 92.5% positive, IA 26.2% positive, HER2/claribel 2+. Ki-67 was 16.7% positive. p53 was 0.2% positive. Patient had lumpectomy and sentinel lymph node biopsy done on the August, and the pathology came back positive for 0.9 cm ductal carcinoma in situ, high grade, with comedonecrosis and microcalcifications. [place] lymph node was negative for malignancy. Patient completed her adjuvant radiation therapy on the November, and her treatment was complicated with radiation dermatitis, which is healing better currently. I am planning to start tamoxifen therapy 20 mg daily for five years, which will also work as a chemopreventive agent for the other breast. Tamoxifen will decrease the risk of progression to invasive cancer by about 50%. I am planning to see her in six months from now with CBC and chemistry panel at that time. PLAN 1. Tamoxifen 21 mg daily. 2. Patient to return in six months with CBC and chem panel. 3. Patient to contact us for any new concerns or complaints. JOHND
== END 2018-12-28 ==
LOC: RAON 09:41
PROVIDERS: ATTEND Radiology Radiation Oncology
DX: Z51.0 Encounter for antineoplastic radiation therapy (principal); D05.12 Intraductal carcinoma in situ of left breast; I10 Essential (primary) hypertension; E78.5 Hyperlipidemia, unspecified; E03.9 Hypothyroidism, unspecified; Z17.0 Estrogen receptor positive status [ER+]
CPT/HCPCS: 36415; 77280; 77295; 77300; 77301; 77334; 77336; 77338; 77412; 82040; 82247; 82306; 82310; 82374; 82435; 82565; 82947; 84075; 84132; 84155; 84295; 84450; 84460; 84520; 85025; 99202; 99212